=== PATIENT | female | born 1975 | race Two or more races ===

== ENCOUNTER 2017-01-02 12:50 | Emergency (ER) | payer MEDICAID ==
[~2017-01-02] VITALS: Ht 162.6 cm; Wt 118.2 kg
[~2017-01-02 12:50] MED LIST: ALBU8HFA IH; BUDE180H IH
[2017-01-02] MEDS ORDERED: LISI-618 PO (13:06)
[2017-01-02] MEDS ORDERED: HYDR12.530 PO (13:06)
[2017-01-02 13:59] VITALS: BP 151/97
[2017-01-02] MEDS ORDERED: KETOROLAC TROMETHAMINE 60 MG/2 ML VIAL IM ONE (14:00)
[2017-01-02] MEDS ORDERED: METHOCARBAMOL 500 MG TABLET PO ONE (14:00)
== END 2017-01-02 14:35 | disposition home or self-care (01) ==
LOC: EMS 12:54
DX: S39.012A Strain of muscle, fascia and tendon of lower back, initial encounter (principal); E11.9 Type 2 diabetes mellitus without complications; I10 Essential (primary) hypertension; J45.909 Unspecified asthma, uncomplicated; G43.909 Migraine, unspecified, not intractable, without status migrainosus; X50.0XXA Overexertion from strenuous movement or load, initial encounter; Y93.89 Activity, other specified; Y92.89 Other specified places as the place of occurrence of the external cause; Y99.8 Other external cause status
CPT/HCPCS: 96372; 99283; J1885

== ENCOUNTER 2017-03-18 10:11 | Emergency (ER) | payer MEDICAID ==
[~2017-03-18] VITALS: Ht 162.6 cm; Wt 105.0 kg
[~2017-03-18 10:11] MED LIST changes: +HYDR12.530 PO; +LISI-618 PO
[2017-03-18] MEDS ORDERED: KETOROLAC TROMETHAMINE 60 MG/2 ML VIAL IM ONE (12:45)
[2017-03-18 13:13] VITALS: BP 138/79
== END 2017-03-18 14:11 | disposition home or self-care (01) ==
LOC: EMS 10:12
DX: I10 Essential (primary) hypertension (principal); R51 Headache; E11.9 Type 2 diabetes mellitus without complications; J45.909 Unspecified asthma, uncomplicated
CPT/HCPCS: 70450; 96372; 99284; J1885

== ENCOUNTER 2019-06-04 08:55 | Emergency (ER) | payer MEDICAID ==
[~2019-06-04] VITALS: Ht 162.6 cm; Wt 95.0 kg
[~2019-06-04 08:55] MED LIST changes: +AMOX1TAB16 PO; +ATOR10TA84 PO; +FLUO-191 PO; +METF-960 PO; +OFLO35OS AD; +TRAZ-220 PO
[2019-06-04 09:10] LABS: GLUCOSE,POINT OF CARE 174 MG/DL (70-110)
[2019-06-04] MEDS ORDERED: IBUPROFEN 800 MG TABLET PO ONE (11:30)
[2019-06-04 11:45] VITALS: BP 128/87
== END 2019-06-04 11:51 | disposition home or self-care (01) ==
LOC: EMS 08:57
DX: J02.9 Acute pharyngitis, unspecified (principal); H60.501 Unspecified acute noninfective otitis externa, right ear; J45.909 Unspecified asthma, uncomplicated; E11.9 Type 2 diabetes mellitus without complications; I10 Essential (primary) hypertension; G43.909 Migraine, unspecified, not intractable, without status migrainosus; Z79.899 Other long term (current) drug therapy; Z79.84 Long term (current) use of oral hypoglycemic drugs

== ENCOUNTER 2019-06-18 19:55 | Emergency (ER) | payer MEDICAID ==
[~2019-06-18] VITALS: Ht 162.6 cm; Wt 110.5 kg
[~2019-06-18 19:55] MED LIST changes: -AMOX1TAB16 PO; -OFLO35OS AD
[2019-06-18] MEDS ORDERED: DOXY100C PO (20:13)
[2019-06-18] MEDS ORDERED: ESOM20CA31 PO (20:13)
[2019-06-18] MEDS ORDERED: METR250 PO (20:13)
[2019-06-18 21:01] LABS: AMPHET/METH SCREEN,URINE NEGATIVE (NEGATIVE); BARBITURATE SCREEN, URINE NEGATIVE (NEGATIVE); BENZODIAZEPINES SCREEN,URINE NEGATIVE (NEGATIVE); CANNABINOID SCREEN,URINE NEGATIVE (NEGATIVE); COCAINE SCREEN,URINE NEGATIVE (NEGATIVE); METHADONE SCREEN, URINE NEGATIVE (NEGATIVE); OPIATE SCREEN,URINE NEGATIVE (NEGATIVE); PHENCYCLIDINE SCREEN,URINE NEGATIVE (NEGATIVE)
[2019-06-18 21:09] LABS: BASOPHILS % (AUTO) 0.9 % (0.0-2.0); EOSINOPHILS % (AUTO) 1.8 % (1.0-6.0); HEMATOCRIT 39.9 % (36-46); HEMOGLOBIN 13.2 g/dL (12.0-16.0); LYMPHOCYTES # (AUTO) 2.6 K/uL (1.0-4.8); MEAN CORPUSCULAR HEMOGLOBIN 28.4 pg (26.0-34.0); MEAN CORPUSCULAR VOLUME 86 fL (80-100); MONOCYTES # (AUTO) 0.7 K/uL (0.1-1.0); MONOCYTES % (AUTO) 7.3 % (2.0-9.0); NEUTROPHILS # (AUTO) 6.7 K/uL (1.8-7.7); PLATELET COUNT (AUTO) 391 K/uL (150-450); RED BLOOD CELL COUNT(AUTO) 4.64 MIL/uL (4.00-5.20); RED CELL DISTRIBUTION WIDTH 15.2 % (11.5-14.5)
[2019-06-18 21:11] LABS: APPEARANCE,URINE CLEAR (CLEAR); BILIRUBIN,URINE NEGATIVE (NEGATIVE); GLUCOSE, URINE (UA) NEGATIVE (NEGATIVE); KETONES,URINE NEGATIVE (NEGATIVE); LEUKOCYTE ESTERASE ,URINE NEGATIVE (NEGATIVE); NITRATE,URINE NEGATIVE (NEGATIVE); OCCULT BLOOD,URINE NEGATIVE (NEGATIVE); PH,URINE 6.5 (5.0-8.0); PROTEIN,URINE NEGATIVE (NEGATIVE); UROBILINOGEN,URINE 0.2 mg/dL (<=1.0)
[2019-06-18 21:23] LABS: INR 1.1 (0.9-1.1); PROTHROMBIN TIME 11.1 SEC (9.4-11.6)
[2019-06-18 21:36] LABS: B-TYPE NATRIURETIC PEPTIDE 11 pg/mL (0-100)
[2019-06-18 21:37] LABS: ANION GAP 9 mmol/L (8-16); CALCIUM, TOTAL 10.1 mg/dL (8.8-10.5); CARBON DIOXIDE 27 mmol/L (22-29); CHLORIDE 99 mmol/L (98-107); CREATININE 0.66 mg/dL (0.60-1.30); GLOMERULAR FILTR. RATE CALC > 60 mL/min (>60); GLUCOSE,RANDOM 117 mg/dL (70-110); POTASSIUM 3.5 mmol/L (3.5-5.1); SODIUM SERUM 135 mmol/L (136-145); UREA NITROGEN, BLOOD 7 mg/dL (7-18)
[2019-06-18] MEDS ORDERED: PB/HYOSCY/ATR/SCOP/LIDO/MAALOX 55 ML BOTTLE PO ONE (21:45)
[2019-06-18 22:01] LABS: ALANINE AMINOTRANSFERASE 42 U/L (12-78); ALBUMIN 3.9 g/dL (3.4-5.0); ALKALINE PHOSPHATASE 92 U/L (46-116); ASPARTATE AMINOTRANSFERASE 27 U/L (15-37); BILIRUBIN,TOTAL 0.4 mg/dL (0.1-1.0); CREATINE KINASE, TOTAL ONLY 95 U/L (26-192); HCG,QUANTITATIVE < 1 mIU/mL (0-6); TOTAL PROTEIN, SERUM 7.5 g/dL (6.4-8.2)
[2019-06-18 22:26] VITALS: BP 122/76
== END 2019-06-18 22:30 | disposition home or self-care (01) ==
LOC: EMS 19:56
DX: K29.70 Gastritis, unspecified, without bleeding (principal); E11.9 Type 2 diabetes mellitus without complications; G43.909 Migraine, unspecified, not intractable, without status migrainosus; I10 Essential (primary) hypertension; J45.909 Unspecified asthma, uncomplicated; Z79.899 Other long term (current) drug therapy
CPT/HCPCS: 93005

== ENCOUNTER 2020-02-16 20:19 | Emergency (ER) | payer MEDICAID ==
[~2020-02-16] VITALS: Ht 162.6 cm; Wt 109.1 kg
[~2020-02-16 20:19] MED LIST changes: +DOXY100C PO; +ESOM20CA31 PO; +METR250 PO; -TRAZ-220 PO; +TRAZ-257 PO
[2020-02-16] MEDS ORDERED: DICY20 PO (20:23)
[2020-02-16] MEDS ORDERED: IBUP-2271 PO (20:23)
[2020-02-16] MEDS ORDERED: MORPHINE SULFATE 2 MG/ML SYRINGE IVP ONE (21:45)
[2020-02-16] MEDS ORDERED: SODIUM CHLORIDE 0.9% 1,000 ML IV ONE (21:45)
[2020-02-16] MEDS ORDERED: ONDANSETRON HCL 4 MG/2 ML VIAL IVP ONE (21:45)
[2020-02-16 22:12] LABS: BASOPHILS % (AUTO) 0.9 % (0.0-2.0); EOSINOPHILS % (AUTO) 2.5 % (1.0-6.0); HEMATOCRIT 36.2 % (36-46); HEMOGLOBIN 11.7 g/dL (12.0-16.0); LYMPHOCYTES # (AUTO) 1.6 K/uL (1.0-4.8); LYMPHOCYTES % (AUTO) 24.1 % (22.0-44.0); MEAN CORPUSCULAR HEMOGLOBIN 26.1 pg (26.0-34.0); MEAN CORPUSCULAR HGB CONC 32.4 G/dL (31.0-37.0); MEAN CORPUSCULAR VOLUME 80 fL (80-100); MONOCYTES # (AUTO) 0.4 K/uL (0.1-1.0); MONOCYTES % (AUTO) 6.3 % (2.0-9.0); NEUTROPHILS # (AUTO) 4.5 K/uL (1.8-7.7); NEUTROPHILS % (AUTO) 66.2 % (40.0-70.0); PLATELET COUNT (AUTO) 359 K/uL (150-450)
[2020-02-16 22:29] LABS: ALANINE AMINOTRANSFERASE 70 U/L (12-78); ALBUMIN 3.5 g/dL (3.4-5.0); ALKALINE PHOSPHATASE 94 U/L (46-116); ANION GAP 8 mmol/L (8-16); ASPARTATE AMINOTRANSFERASE 106 U/L (15-37); BILIRUBIN,TOTAL 0.3 mg/dL (0.1-1.0); CALCIUM, TOTAL 8.9 mg/dL (8.8-10.5); CARBON DIOXIDE 28 mmol/L (22-29); CHLORIDE 95 mmol/L (98-107); CREATININE 1.13 mg/dL (0.60-1.30); GLOMERULAR FILTR. RATE CALC 53 mL/min (>60); HCG,QUANTITATIVE < 1 mIU/mL (0-6); LIPASE 220 U/L (73-393); POTASSIUM 4.4 mmol/L (3.5-5.1); SODIUM SERUM 131 mmol/L (136-145); TOTAL PROTEIN, SERUM 7.5 g/dL (6.4-8.2); UREA NITROGEN, BLOOD 13 mg/dL (7-18)
[2020-02-16 22:31] LABS: APPEARANCE,URINE CLEAR (CLEAR); BILIRUBIN,URINE NEGATIVE (NEGATIVE); GLUCOSE, URINE (UA) >=1000 mg/dL (NEGATIVE); KETONES,URINE NEGATIVE (NEGATIVE); LEUKOCYTE ESTERASE ,URINE NEGATIVE (NEGATIVE); NITRATE,URINE NEGATIVE (NEGATIVE); OCCULT BLOOD,URINE TRACE (NEGATIVE); PROTEIN,URINE NEGATIVE (NEGATIVE); UROBILINOGEN,URINE 0.2 mg/dL (<=1.0)
[2020-02-16 22:34] LABS: GLUCOSE,RANDOM 422 mg/dL (70-110)
[2020-02-16 22:47] LABS: BACTERIA,URINE Rare /HPF (None Seen); SQUAMOUS EPITHELIAL CELL,UR Few /LPF (None Seen); WBC,URINE 0-2 /HPF (0-5)
[2020-02-16] MEDS ORDERED: SODIUM CHLORIDE 0.9% 100 ML ONE (23:19)
[2020-02-16] MEDS ORDERED: IOVERSOL 350 MG/ML 100 ML VIAL ONE (23:19)
[2020-02-16 23:21] VITALS: BP 122/69
== END 2020-02-17 00:53 | disposition home or self-care (01) ==
LOC: EMS 20:19
DX: R10.31 Right lower quadrant pain (principal); E11.65 Type 2 diabetes mellitus with hyperglycemia; I10 Essential (primary) hypertension; G43.909 Migraine, unspecified, not intractable, without status migrainosus; J45.909 Unspecified asthma, uncomplicated
CPT/HCPCS: 36415; 74177; 80053; 81001; 83690; 84702; 85025; 96361; 96374; 96375; 99285; J2270; J2405; J7030; J7050; Q9967

== ENCOUNTER 2020-07-10 03:42 | Emergency (ER) | payer MEDICAID ==
[~2020-07-10] VITALS: Ht 162.6 cm; Wt 110.5 kg
[~2020-07-10 03:42] MED LIST changes: +DICY20 PO; -DOXY100C PO; +IBUP-2759 PO; -METR250 PO
[2020-07-10] MEDS ORDERED: KETOROLAC TROMETHAMINE 30 MG/ML VIAL IVP ONE (05:30)
[2020-07-10] MEDS ORDERED: MORPHINE SULFATE 4 MG/ML SYRINGE IVP ONE ×2 (05:30→07:15)
[2020-07-10] MEDS ORDERED: IOVERSOL 320 MG/ML 100 ML VIAL ONE (05:42)
[2020-07-10] MEDS ORDERED: SODIUM CHLORIDE 0.9% 100 ML ONE (05:42)
[2020-07-10 06:08] LABS: BASOPHILS % (AUTO) 0.5 % (0.0-2.0); EOSINOPHILS % (AUTO) 1.7 % (1.0-6.0); HEMATOCRIT 33.5 % (36-46); HEMOGLOBIN 11.2 g/dL (12.0-16.0); LYMPHOCYTES % (AUTO) 10.4 % (22.0-44.0); MEAN CORPUSCULAR HEMOGLOBIN 27.5 pg (26.0-34.0); MEAN CORPUSCULAR HGB CONC 33.5 G/dL (31.0-37.0); MEAN CORPUSCULAR VOLUME 82 fL (80-100); MONOCYTES # (AUTO) 0.5 K/uL (0.1-1.0); MONOCYTES % (AUTO) 5.7 % (2.0-9.0); NEUTROPHILS # (AUTO) 7.8 K/uL (1.8-7.7); NEUTROPHILS % (AUTO) 81.7 % (40.0-70.0); PLATELET COUNT (AUTO) 396 K/uL (150-450); RED BLOOD CELL COUNT(AUTO) 4.07 MIL/uL (4.00-5.20); RED CELL DISTRIBUTION WIDTH 15.4 % (11.5-14.5)
[2020-07-10 06:28] LABS: ANION GAP 7 mmol/L (8-16); CALCIUM, TOTAL 8.9 mg/dL (8.8-10.5); CARBON DIOXIDE 29 mmol/L (22-29); CHLORIDE 99 mmol/L (98-107); CREATININE 0.99 mg/dL (0.60-1.30); GLOMERULAR FILTR. RATE CALC > 60 mL/min (>60); GLUCOSE,RANDOM 240 mg/dL (70-110); POTASSIUM 3.4 mmol/L (3.5-5.1); SODIUM SERUM 135 mmol/L (136-145); UREA NITROGEN, BLOOD 13 mg/dL (7-18)
[2020-07-10 06:41] LABS: LACTIC ACID 1.9 mmol/L (0.4-2.0)
[2020-07-10 06:48] LABS: ALANINE AMINOTRANSFERASE 36 U/L (12-78); ALBUMIN 3.3 g/dL (3.4-5.0); ALKALINE PHOSPHATASE 97 U/L (46-116); ASPARTATE AMINOTRANSFERASE 18 U/L (15-37); BILIRUBIN,TOTAL 0.2 mg/dL (0.1-1.0); HCG,QUANTITATIVE < 1 mIU/mL (0-6); TOTAL PROTEIN, SERUM 7.4 g/dL (6.4-8.2)
[2020-07-10] MEDS ORDERED: ONDANSETRON HCL 4 MG/2 ML VIAL IVP ONE (07:15)
[2020-07-10] MEDS ORDERED: CIPROFLOXACIN HCL 250 MG TABLET PO ONE (09:15)
[2020-07-10] MEDS ORDERED: HYDROCODONE/ACETAMINOPHEN 5-325 MG TABLET PO ONE (09:15)
[2020-07-10 09:53] VITALS: BP 128/82
== END 2020-07-10 09:55 | disposition home or self-care (01) ==
LOC: EMS 03:42
DX: H60.92 Unspecified otitis externa, left ear (principal); E11.9 Type 2 diabetes mellitus without complications; J45.909 Unspecified asthma, uncomplicated; G43.909 Migraine, unspecified, not intractable, without status migrainosus; I10 Essential (primary) hypertension; Z79.899 Other long term (current) drug therapy; Z79.84 Long term (current) use of oral hypoglycemic drugs
CPT/HCPCS: 36415; 70460; 70491; 80053; 82962; 83605; 84702; 85025; 96374; 96375; 96376; 99285; J1885; J2270; J2405; J7050; Q9967

== ENCOUNTER 2022-11-25 16:10 | Emergency (ER) | payer MEDICAID ==
[~2022-11-25] VITALS: Ht 162.6 cm; Wt 100.0 kg
[~2022-11-25 16:10] MED LIST changes: +ATOR10TA PO; -ATOR10TA84 PO; -DICY20 PO; +DICY20TA95 PO; +FLUO-177 PO; -FLUO-191 PO; -IBUP-2759 PO; +IBUP-45 PO; -LISI-618 PO; +LISI20TA24 PO; +METF-1211 PO; -METF-960 PO
[2022-11-25] MEDS ORDERED: INSULIN SQ (16:15)
[2022-11-25] MEDS ORDERED: LORATADINE 10 MG TABLET PO ONE (17:00)
[2022-11-25] MEDS ORDERED: METF-446 PO (17:01)
[2022-11-25] MEDS ORDERED: FERR325T23 PO (17:01)
[2022-11-25] MEDS ORDERED: GLIP10TA9 PO (17:01)
[2022-11-25] MEDS ORDERED: INSU100I26 SQ (17:01)
[2022-11-25] MEDS ORDERED: ATOR-2 PO (17:01)
[2022-11-25] MEDS ORDERED: EMPA10TA3 PO (17:01)
[2022-11-25] MEDS ORDERED: LOSA100T58 PO (17:01)
[2022-11-25] MEDS ORDERED: AMLO5TAB66 PO (17:01)
[2022-11-25 17:15] LABS: BASOPHILS % (AUTO) 1.4 % (0.0-2.0); HEMATOCRIT 35.1 % (36-46); HEMOGLOBIN 10.8 g/dL (12.0-16.0); LYMPHOCYTES # (AUTO) 1.5 K/uL (1.0-4.8); LYMPHOCYTES % (AUTO) 23.8 % (22.0-44.0); MEAN CORPUSCULAR HEMOGLOBIN 23.8 pg (26.0-34.0); MEAN CORPUSCULAR HGB CONC 30.7 G/dL (31.0-37.0); MEAN CORPUSCULAR VOLUME 77 fL (80-100); MONOCYTES # (AUTO) 0.4 K/uL (0.1-1.0); MONOCYTES % (AUTO) 6.9 % (2.0-9.0); NEUTROPHILS % (AUTO) 64.9 % (40.0-70.0); PLATELET COUNT (AUTO) 466 K/uL (150-450); RED BLOOD CELL COUNT(AUTO) 4.53 MIL/uL (4.00-5.20); RED CELL DISTRIBUTION WIDTH 21.6 % (11.5-14.5)
[2022-11-25 17:20] LABS: ANION GAP 12 mmol/L (8-16); CALCIUM, TOTAL 9.5 mg/dL (8.8-10.5); CARBON DIOXIDE 24 mmol/L (22-29); CHLORIDE 98 mmol/L (98-107); CREATININE 0.91 mg/dL (0.60-1.30); GLUCOSE,RANDOM 252 mg/dL (70-110); POTASSIUM 3.3 mmol/L (3.5-5.1); SODIUM SERUM 134 mmol/L (136-145); UREA NITROGEN, BLOOD 17 mg/dL (7-18)
[2022-11-25 17:21] LABS: GLOMERULAR FILTR. RATE CALC > 60 mL/min (>60)
[2022-11-25 17:26] LABS: ALANINE AMINOTRANSFERASE 26 U/L (12-78); ALBUMIN 3.9 g/dL (3.4-5.0); ALKALINE PHOSPHATASE 102 U/L (46-116); ASPARTATE AMINOTRANSFERASE 26 U/L (15-37); BILIRUBIN,TOTAL 0.3 mg/dL (0.1-1.0); PLATELET MORPHOLOGY COMMENT LARGE PLTS PRESENT; TOTAL PROTEIN, SERUM 8.4 g/dL (6.4-8.2)
[2022-11-25 18:13] VITALS: BP 140/90
== END 2022-11-25 18:15 | disposition home or self-care (01) ==
LOC: EMS 18:10
DX: L29.9 Pruritus, unspecified (principal); F15.90 Other stimulant use, unspecified, uncomplicated; J45.909 Unspecified asthma, uncomplicated; E11.9 Type 2 diabetes mellitus without complications; I10 Essential (primary) hypertension; G43.909 Migraine, unspecified, not intractable, without status migrainosus
CPT/HCPCS: 80053; 82962; 84703; 85025; 99283

== ENCOUNTER 2025-02-11 17:48 | Emergency (ER) | payer MEDICAID ==
[~2025-02-11] VITALS: Ht 162.6 cm; Wt 91.8 kg
[~2025-02-11 17:48] MED LIST changes: +ALBU18HF12 IH; -ALBU8HFA IH; +AMLO5TAB66 PO; +ATOR-2 PO; -ATOR10TA PO; -BUDE180H IH; -DICY20TA95 PO; +EMPA10TA3 PO; -ESOM20CA31 PO; +FERR325T23 PO; +GLIP10TA16 PO; -HYDR12.530 PO; -IBUP-45 PO; +INSU100I26 SQ; -LISI20TA24 PO; +LOSA100T59 PO; -METF-1211 PO; +METF-446 PO
[2025-02-11 17:50] VITALS: BP 168/89; PULSE 96; RESP 18; TEMP 98.5; O2SAT 100
== END 2025-02-11 20:20 | disposition left against medical advice (07) ==
LOC: EMS 17:49
DX: H92.02 Otalgia, left ear (principal); Z53.21 Procedure and treatment not carried out due to patient leaving prior to being seen by health care provider
CPT/HCPCS: 82962